=== PATIENT | male | born 1935 | race Caucasian/White ===

== ENCOUNTER 2020-10-09 02:18 | Emergency (ER) | payer OTHER ==
--- NOTE | 2020-10-09 05:47 | ER ---
Nurse's Notes [facility] Name: Craig Chase Age: 85 yrs Sex: Male : 1935 Arrival Date: 10/09/2020 Time: 02:28 Bed 16 Private MD: Diagnosis: Urinary Frequency Presentation: 10/09 02:36 Chief complaint: EMS states: pt is a resident of [facility], complaining of urinary sg frequency that began yesterday, and worsening now. Ebola Screen: Patient negative for fever greater than or equal to 101.5 degrees Fahrenheit, and additional compatible Ebola Virus Disease symptoms Patient denies exposure to infectious person. Patient denies travel to an Ebola-affected area in the 21 days before illness onset. No symptoms or risks identified at this time. Initial Sepsis Screen: Does the patient meet any 2 criteria? No. Patient's initial sepsis screen is negative. Does the patient have a suspected source of infection? Yes: Dysuria/Frequency/Urgency/UTI. Risk Assessment: Do you want to hurt yourself or someone else? Patient reports no desire to harm self or others. Onset of symptoms was October 08, 2020. Transition of care: patient was received from another setting of care (long-term care facility), [facility]. 02:36 Acuity: SAMIRA 4 sg 02:36 Method Of Arrival: EMS: [facility] sg - Immunization history:: Adult Immunizations up to date. - Social history:: Smoking status: . Screenin:28 Abuse screen: Denies threats or abuse. ll2 02:28 Nutritional screening: No deficits noted. Tuberculosis screening: No symptoms or risk ll2 factors identified. Assessment: 02:30 General: Appears in no apparent distress. Behavior is calm, cooperative, appropriate ll2 for age. Pain: Denies pain. Neuro: Oriented to person, place. Cardiovascular: Patient's skin is warm and dry. Respiratory: Airway is patent Respiratory effort is even, unlabored, Respiratory pattern is regular, symmetrical. GI: No signs and/or symptoms were reported involving the gastrointestinal system. : No signs and/or symptoms were reported regarding the genitourinary system. Derm: Skin is intact, is fragile, Skin is dry, Skin is pink, warm \T\ dry. Musculoskeletal: No signs and/or symptoms reported regarding the musculoskeletal system. 03:30 Reassessment: Patient and/or family updated on plan of care and expected duration. Pain ll2 level reassessed. Patient is alert, oriented x 3, equal unlabored respirations, skin warm/dry/pink. 04:30 Reassessment: Patient and/or family updated on plan of care and expected duration. Pain ll2 level reassessed. 05:30 Reassessment: Patient and/or family updated on plan of care and expected duration. Pain ll2 level reassessed. 06:30 Reassessment: attempted to give report to [facility]. ll2 07:00 Reassessment: Patient appears in no apparent distress at this time. Patient and/or tw2 family updated on plan of care and expected duration. Pain level reassessed. Patient is alert, oriented x 3, equal unlabored respirations, skin warm/dry/pink. 07:49 Reassessment: Patient appears in no apparent distress at this time. Patient and/or tw2 family updated on plan of care and expected duration. Pain level reassessed. Patient is alert, oriented x 3, equal unlabored respirations, skin warm/dry/pink. Vital Signs: 02:28 BP 110 / 54 LA Supine (auto/pedi); Pulse 50 MON; Resp 14 S; Temp 97.5(O); Pulse Ox 98% ds4 on 2.5 lpm NC; Weight 83.91 kg (R); Height 6 ft. 7 in. (200.66 cm) (R); 07:48 BP 127 / 69; Pulse 72; Resp 17; Pulse Ox 100% on R/A; tw2 02:28 Body Mass Index 20.84 (83.91 kg, 200.66 cm) ds4 ED Course: 02:28 Patient arrived in ED. sg 02:28 Patient has correct armband on for positive identification. Bed in low position. Call ll2 light in reach. Side rails up X 1. Pulse ox on. NIBP on. 02:28 No provider procedures requiring assistance completed. ll2 02:30 Arm band placed on right wrist. ll2 02:31 Robby Smith MD is Attending Physician. 7 02:38 Triage completed. sg 06:17 Anamika Moody, ERIKA is Primary Nurse. ll2 07:49 Awaiting transportation. tw2 Administered Medications: No medications were administered Output: 07:48 Urine: 250ml (Voided); Total: 250ml. tw2 Outcome: 05:47 Discharge ordered by . 7 05:50 Discharged to shelter. Report called to [facility] 05:50 Condition: stable 05:50 Instructed on discharge instructions, follow up and referral plans. 09:55 Patient left the ED. em1 Signatures: Babatunde Perdomo, RN RN Braydon Bonner em1 Aris Rodriguez ds4 Rylee Shaw RN RN 2 Rob Marti RN RN rr5 Anamika Moody RN RN 2 Robby Smith MD MD 7 Corrections: (The following items were deleted from the chart) 02:33 02:28 BP 110 / 54 Supine Auto L Arm Pedi; Pulse 50bpm; MonitorResp 14bpm; Spontaneous; ds4 Pulse Ox 98% 2.5 lpm Nasal Cannula; Temp 97.5F Oral; ds4 03:39 02:36 Arm band placed on rr5 rr5
--- NOTE | 2020-10-09 05:48 | EDPHYS ---
Physician Documentation [facility] Name: Craig Chase Age: 85 yrs Sex: Male : 1935 Arrival Date: 10/09/2020 Time: 02:28 Bed 16 Private MD: ED Physician Robby Smith HPI: 10/09 03:12 This 85 yrs old Male presents to ER via EMS with complaints of Urinary mh7 Frequency. 03:12 The patient presents with urinary symptoms, urinary frequency. mh7 03:13 Onset: The symptoms/episode began/occurred yesterday. Modifying factors: The symptoms mh7 are alleviated by nothing, the symptoms are aggravated by nothing. 03:13 Associated signs and symptoms: Pertinent negatives: abdominal pain, constipation, mh7 diarrhea, dysuria, fever, hematuria, nausea, vomiting. Severity of symptoms: At their worst the symptoms were mild, yesterday, in the emergency department the symptoms are unchanged. - Immunization history:: Adult Immunizations up to date. - Social history:: Smoking status: . ROS: 03:13 Constitutional: Negative for fever, chills, and weight loss, Eyes: Negative for injury, mh7 pain, redness, and discharge, ENT: Negative for injury, pain, and discharge, Neck: Negative for injury, pain, and swelling, Cardiovascular: Negative for chest pain, palpitations, and edema, Respiratory: Negative for shortness of breath, cough, wheezing, and pleuritic chest pain, Abdomen/GI: Negative for abdominal pain, nausea, vomiting, diarrhea, and constipation, Back: Negative for injury and pain, MS/Extremity: Negative for injury and deformity, Skin: Negative for injury, rash, and discoloration, Neuro: Negative for headache, weakness, numbness, tingling, and seizure, Psych: Negative for depression, anxiety, suicide ideation, homicidal ideation, and hallucinations, Allergy/Immunology: Negative for hives, rash, and allergies, Endocrine: Negative for neck swelling, polydipsia, polyuria, polyphagia, and marked weight changes, Hematologic/Lymphatic: Negative for swollen nodes, abnormal bleeding, and unusual bruising. Exam: 03:13 Constitutional: This is a well developed, well nourished patient who is awake, alert, mh7 and in no acute distress. Head/Face: Normocephalic, atraumatic. Eyes: Pupils equal round and reactive to light, extra-ocular motions intact. Lids and lashes normal. Conjunctiva and sclera are non-icteric and not injected. Cornea within normal limits. Periorbital areas with no swelling, redness, or edema. Neck: Trachea midline, no thyromegaly or masses palpated, and no cervical lymphadenopathy. Supple, full range of motion without nuchal rigidity, or vertebral point tenderness. No Meningismus. Chest/axilla: Normal chest wall appearance and motion. Nontender with no deformity. No lesions are appreciated. Cardiovascular: Regular rate and rhythm with a normal S1 and S2. No gallops, murmurs, or rubs. Normal PMI, no JVD. No pulse deficits. Respiratory: Lungs have equal breath sounds bilaterally, clear to auscultation and percussion. No rales, rhonchi or wheezes noted. No increased work of breathing, no retractions or nasal flaring. Abdomen/GI: Soft, non-tender, with normal bowel sounds. No distension or tympany. No guarding or rebound. No evidence of tenderness throughout. Back: No spinal tenderness. No costovertebral tenderness. Full range of motion. Skin: Warm, dry with normal turgor. Normal color with no rashes, no lesions, and no evidence of cellulitis. MS/ Extremity: Pulses equal, no cyanosis. Neurovascular intact. Full, normal range of motion. Neuro: Awake and alert, GCS 15, oriented to person, place, time, and situation. Cranial nerves II-XII grossly intact. Motor strength 5/5 in all extremities. Sensory grossly intact. Cerebellar exam normal. Normal gait. Psych: Awake, alert, with orientation to person, place and time. Behavior, mood, and affect are within normal limits. Vital Signs: 02:28 BP 110 / 54 LA Supine (auto/pedi); Pulse 50 MON; Resp 14 S; Temp 97.5(O); Pulse Ox 98% ds4 on 2.5 lpm NC; Weight 83.91 kg (R); Height 6 ft. 7 in. (200.66 cm) (R); 07:48 BP 127 / 69; Pulse 72; Resp 17; Pulse Ox 100% on R/A; tw2 02:28 Body Mass Index 20.84 (83.91 kg, 200.66 cm) ds4 MDM: 05:44 Differential diagnosis: UTI, prostatitis, urethritis. Data reviewed: vital signs, [facility] nurses notes, EMS record, lab test result(s), urinalysis. Data interpreted: Pulse oximetry: on room air is 98 %. Interpretation: normal. Counseling: I had a detailed discussion with the patient and/or guardian regarding: the historical points, exam findings, and any diagnostic results supporting the discharge/admit diagnosis, lab results, the need for outpatient follow up, to return to the emergency department if symptoms worsen or persist or if there are any questions or concerns that arise at home. Response to treatment: the patient's symptoms have resolved after treatment, the patient's blood pressure is in an acceptable range, mental status has returned to baseline, the patient no longer shows bradycardia, the patient is not short of breath, the patient is not tachycardic, the patient's pain is gone, the patient's temperature has normalized. 05:47 Patient medically screened. [facility] 10/09 05:42 Order name: Urine Dipstick--Ancillary (enter results) [facility] 10/09 02:44 Order name: Urine Dipstick-Ancillary (obtain specimen); Complete Time: 05:41 [facility] Administered Medications: No medications were administered Disposition: 10/09/20 05:47 Discharged to Home. Impression: Urinary Frequency. - Condition is Stable. - Discharge Instructions: Urinary Frequency, Adult. - Medication Reconciliation Form, Thank You Letter, Antibiotic Education, Prescription Opioid Use form. - Follow up: Private Physician; When: 1 - 2 days; Reason: Worsening of condition, Recheck today's complaints, Continuance of care, Re-evaluation by your physician. - Problem is new. - Symptoms are resolved. Signatures: Dispatcher [employer] EDMS Braydon Yeh em1 Anamika Moody RN RN ll2 Robby Smith MD MD 7 Corrections: (The following items were deleted from the chart) 09:55 05:47 10/09/2020 05:47 Discharged to Home. Impression: Urinary Frequency. Condition is em1 Stable. Forms are Medication Reconciliation Form, Thank You Letter, Antibiotic Education, Prescription Opioid Use. Follow up: Private Physician; When: 1 - 2 days; Reason: Worsening of condition, Recheck today's complaints, Continuance of care, Re-evaluation by your physician. Problem is new. Symptoms are resolved. mh7
[2020-10-09 05:56] LABS: Urine Blood NEGATIVE (NEG); Urine Glucose NEGATIVE (NEG); Urine Protein NEGATIVE (NEG); Urine Specific Gravity 1.015 (1.005-1.030); Urine pH 6.5 (5.0-7.0)
[2020-10-09 10:01] VITALS: TEMP 97.5
[2020-10-09 10:02] VITALS: BP 127/69; O2SAT 100
== END 2020-10-09 09:55 | disposition home or self-care (01) ==
LOC: ER 02:18
DX: R35.0 Frequency of micturition (principal)
CPT/HCPCS: 81003; 99283